=== PATIENT | female | born 1970 | race African-American/Black ===

== ENCOUNTER 2017-09-27 20:54 | Emergency (ER) | payer OTHER ==
[2017-09-27 21:12] VITALS: RESP 20; TEMP 98.5
[2017-09-27] MEDS ORDERED: SODIUM CHLORIDE 0.9% 1000ML 1,000 ML IV ONE (21:31)
[2017-09-27 21:34] LABS: BASOPHILS % (AUTO) 2 % (0-3); EOSINOPHILS % (AUTO) 0 % (0-9); HEMATOCRIT 42 % (35-47); HEMOGLOBIN 14.2 gm/dl (12.0-15.5); LYMPHOCYTES % (AUTO) 23.2 % (10-50); MEAN CORPUSCULAR HEMOGLOBIN 30.5 pg (27.0-32.0); MEAN CORPUSCULAR HGB CONC 33.9 gm/dl (32.0-36.0); MEAN CORPUSCULAR VOLUME 90 fL (81-99); MONOCYTES % (AUTO) 9.3 % (0-12); NEUTROPHILS % (AUTO) 65.1 % (37-80)
[2017-09-27 21:47] LABS: ALBUMIN 3.2 gm/dl (3.4-5.0); BILIRUBIN,TOTAL 0.3 mg/dl (0.2-1.0); CALCIUM 8.7 mg/dl (8.5-10.1); CARBON DIOXIDE 29.1 mEq/L (21-32); CREATININE 0.96 mg/dl (0.60-1.00); POTASSIUM 3.4 mMol/L (3.5-5.1); TOTAL PROTEIN 7.7 gm/dl (6.4-8.2)
[2017-09-27] MEDS ORDERED: KETOROLAC TROMETHAMINE 30 MG/ML SOL IV ONE (21:53)
[2017-09-27] MEDS ORDERED: KETOROLAC TROMETHAMINE 30 MG/ML SOL ONE (22:00)
[2017-09-27] MEDS ORDERED: SOLUMEDROL 125 MG/2 ML 125 MG/2 ML PDS IV ONE (22:17)
[2017-09-27] MEDS ORDERED: SOLUMEDROL 125 MG/2 ML 125 MG/2 ML PDS ONE (22:19)
[2017-09-27 22:29] VITALS: PULSE 105; O2SAT 100
[2017-09-27 23:14] VITALS: BP 115/91
== END 2017-09-27 23:10 | disposition home or self-care (01) ==
LOC: ED 20:54
DX: J02.9 Acute pharyngitis, unspecified (principal); R50.9 Fever, unspecified
CPT/HCPCS: 36415; 80053; 82150; 85025; 86308; 96365; 96374; 96375; 99282; 99284; J1885; J2930

== ENCOUNTER 2017-12-03 14:34 | Outpatient (CLI) | payer OTHER ==
[2017-11-06 09:47] VITALS: O2SAT 99
== END 2017-12-03 14:35 | disposition home or self-care (01) ==
LOC: CONVCARE 14:34
PROVIDERS: ATTEND Orthopaedic Surgery
DX: M54.2 Cervicalgia (principal); M25.562 Pain in left knee; M25.552 Pain in left hip; M25.551 Pain in right hip; M79.672 Pain in left foot
CPT/HCPCS: 73502; 73560; 73620

== ENCOUNTER 2018-06-19 10:17 | Emergency (ER) | payer OTHER | END 2018-06-19 11:47 | disposition home or self-care (01) | LOC: ED 10:17 ==

== ENCOUNTER 2018-06-25 12:43 | Day surgery (SDC) | payer OTHER ==
[2018-06-25 13:16] VITALS: RESP 16
[2018-06-25] MEDS ORDERED: LIDOCAINE HCL 1% MPF 30 SOL ONE (13:31)
[2018-06-25] MEDS ORDERED: BUPIVACAINE HCL 0.5% MPF 10 ML SOL ONE (13:31)
[2018-06-25 13:38] LABS: HCG URINE QUALITATIVE NEGATIVE
[2018-06-25 14:26] VITALS: PULSE 82; O2SAT 99
[2018-06-25 14:27] VITALS: TEMP 98.1
[2018-06-25 14:35] VITALS: BP 140/98
== END 2018-06-25 14:50 | disposition home or self-care (01) | DRG 554 ==
LOC: SURG 12:43
PROVIDERS: ATTEND Nurse Anesthetist, Certified Registered
DX: M12.88 Other specific arthropathies, not elsewhere classified, other specified site (principal)
CPT/HCPCS: 84703; J2001

== ENCOUNTER 2018-07-16 13:29 | Day surgery (SDC) | payer OTHER ==
[2018-07-16] MEDS: DIAZEPAM 5 MG TAB ONE (13:45)
[2018-07-16] MEDS ORDERED: LIDOCAINE HCL 1% MPF 30 SOL ONE (14:04)
[2018-07-16] MEDS ORDERED: BUPIVACAINE HCL 0.25% MPF 30 ML SOL INFIL ONE (14:04)
[2018-07-16] MEDS ORDERED: LIDOCAINE HCL 2% MPF 10 ML SOL ONE (14:16)
[2018-07-16 14:37] VITALS: O2SAT 99
[2018-07-16] MEDS: TRIAMCINOLONE ACETONIDE 40 MG/ML SUS ONE (14:39)
[2018-07-16 14:56] VITALS: BP 147/98; PULSE 82; RESP 18; TEMP 97.4
== END 2018-07-16 15:36 | disposition home or self-care (01) | DRG 554 ==
LOC: SURG 13:29
PROVIDERS: ATTEND Nurse Anesthetist, Certified Registered
DX: M12.88 Other specific arthropathies, not elsewhere classified, other specified site (principal); M60.9 Myositis, unspecified
CPT/HCPCS: A9270-GY; J2001; J3300

== ENCOUNTER 2018-07-22 19:27 | Emergency (ER) | payer OTHER ==
[2018-07-22] MEDS ORDERED: MORPHINE SULFATE 10 MG/ML SOL IM ONE (20:00)
[2018-07-22] MEDS ORDERED: SOLUMEDROL 125 MG/2 ML 125 MG/2 ML PDS IM ONE (20:00)
[2018-07-22] MEDS ORDERED: MORPHINE SULFATE 10 MG/ML SOL ONE (20:11)
[2018-07-22] MEDS ORDERED: SOLUMEDROL 125 MG/2 ML 125 MG/2 ML PDS ONE (20:11)
[2018-07-22] MEDS ORDERED: ONDANSETRON 4 MG ODT BU ONE (21:12)
[2018-07-22] MEDS ORDERED: ONDANSETRON 4 MG ODT ONE (21:13)
[2018-07-22 22:54] VITALS: BP 143/89; PULSE 74; RESP 18; TEMP 97.8; O2SAT 99
== END 2018-07-22 21:50 | disposition home health service (06) | DRG 93 ==
LOC: ED 19:27
DX: G89.4 Chronic pain syndrome (principal); M79.7 Fibromyalgia
CPT/HCPCS: 96372; 99282; 99283; J2270; J2930; A9270-GY

== ENCOUNTER 2018-08-20 07:55 | Day surgery (SDC) | payer OTHER ==
[2018-08-20] MEDS ORDERED: LIDOCAINE HCL 1% MPF 30 SOL ONE (08:22)
[2018-08-20] MEDS ORDERED: LIDOCAINE HCL 2% MPF 10 ML SOL ONE (08:22)
[2018-08-20] MEDS ORDERED: BUPIVACAINE HCL 0.25% MPF 30 ML SOL INFIL ONE (08:22)
[2018-08-20] MEDS: FENTANYL 100MCG/2ML SOL ONE ×2 (08:51→09:24)
[2018-08-20] MEDS: MIDAZOLAM 2 MG/2 ML SOL ONE ×2 (08:51→08:58)
[2018-08-20] MEDS: TRIAMCINOLONE ACETONIDE 40 MG/ML SUS ONE ×3 (09:04→09:39)
[2018-08-20 09:18] VITALS: TEMP 98.7
[2018-08-20 10:04] VITALS: BP 133/97; PULSE 74; RESP 20; O2SAT 100
== END 2018-08-20 10:11 | disposition home or self-care (01) | DRG 554 ==
LOC: SURG 07:55
PROVIDERS: ATTEND Nurse Anesthetist, Certified Registered
DX: M12.88 Other specific arthropathies, not elsewhere classified, other specified site (principal)
CPT/HCPCS: J2250; J3010; J2001; J3300